=== PATIENT | female | born 1970 | race Caucasian/White ===

== ENCOUNTER 2017-11-22 18:35 | Emergency (ER) | payer OTHER ==
[~2017-11-22] VITALS: Ht 160 cm; Wt 54.4 kg
[2017-11-22] MEDS ORDERED: Prilosec Otc20 MG (18:41)
[2017-11-22] MEDS ORDERED: HYDSUL200 PO (18:41)
== END 2017-11-22 19:42 | disposition home or self-care (01) ==
LOC: ER 18:35
DX: S91.332A Puncture wound without foreign body, left foot, initial encounter (principal); Z88.8 Allergy status to other drugs, medicaments and biological substances; W26.0XXA Contact with knife, initial encounter
CPT/HCPCS: 73630; 99283

== ENCOUNTER 2018-03-25 14:51 | Emergency (ER) | payer OTHER ==
[~2018-03-25] VITALS: Ht 157.5 cm; Wt 56.7 kg
[~2018-03-25 14:51] MED LIST: HYDSUL200 PO; Prilosec Otc20 MG
[2018-03-25 15:37] LABS: BASOPHILS ABSOLUTE AUTO 0.06 K/mm3 (0.00-0.23); BASOPHILS PERCENT AUTO 1 % (0-2); EOSINOPHILS ABSOLUTE AUTO 0.37 K/mm3 (0.00-0.68); EOSINOPHILS PERCENT AUTO 6 % (0-6); Hematocrit 38.2 % (33.0-51.0); Hemoglobin 12.2 g/dL (11.5-16.0); IMMATURE GRAN ABSOLUTE AUTO 0.03 K/mm3 (0.00-0.10); IMMATURE GRAN PERCENT AUTO 1 % (0-1); LYMPHOCYTES ABSOLUTE AUTO 1.43 K/mm3 (0.84-5.20); LYMPHOCYTES PERCENT AUTO 24 % (21-46); MONOCYTES ABSOLUTE AUTO 0.63 K/mm3 (0.16-1.47); MONOCYTES PERCENT AUTO 11 % (4-13); Mean Corpuscular HGB 30.4 pg (26.0-34.0); Mean Corpuscular HGB Conc 31.9 g/dL (31.5-36.5); Mean Corpuscular Volume 95 fL (80-100); Mean Platelet Volume 9.7 fL (9.1-12.4); NEUTROPHILS PERCENT AUTO 58 % (41-73); Platelet Count 256 K/mm3 (150-400); RDW Coefficient Variation 12.3 % (11.7-14.2); RDW Standard Deviation 43.2 fL (35.1-46.3); Red Blood Cell Count 4.01 M/mm3 (3.80-5.20); White Blood Cell Count 6.02 K/mm3 (4.00-11.30)
[2018-03-25 15:55] LABS: Alanine Aminotransfer (ALT/SGP 30 U/L (12-78); Albumin, Blood 3.6 g/dL (3.4-5.0); Albumin/Globulin Ratio 0.9 (0.8-1.8); Alk Phos 75 U/L (50-136); Anion Gap 8 mmol/L (6-16); Aspartate Aminotrans (AST/SGOT 27 U/L (12-37); Bilirubin, Total 0.3 mg/dL (0.1-1.0); Blood Urea Nitrogen 20 mg/dL (8-24); Bun/Creatinine Ratio 43.8 (12.0-20.0); CO2, Blood 28 mmol/L (21-32); Calcium, Blood 8.6 mg/dL (8.5-10.1); Chloride, Blood 105 mmol/L (98-108); Creatinine, Blood 0.46 mg/dL (0.40-1.00); Globulin, Blood 3.8 g/dL (2.2-4.0); Glomerular Filtration Rate >60 (60-); Glucose, Blood 106 mg/dL (70-99); Potassium, Blood 3.9 mmol/L (3.5-5.5); Sodium, Blood 141 mmol/L (136-145); Total Protein, Blood 7.4 g/dL (6.4-8.2)
[2018-03-28] MEDS ORDERED: Voltaren100 GM TOP (21:16)
== END 2018-03-25 16:49 | disposition left against medical advice (07) ==
LOC: ER 14:51
PROVIDERS: Physician Assistant
DX: Z53.21 Procedure and treatment not carried out due to patient leaving prior to being seen by health care provider (principal)
CPT/HCPCS: 36415; 80053; 85025

== ENCOUNTER 2018-10-10 16:55 | Emergency (ER) | payer OTHER ==
[~2018-10-10] VITALS: Ht 160 cm; Wt 55.8 kg
[~2018-10-10 16:55] MED LIST changes: +Voltaren100 GM TOP
[2018-10-10] MEDS ORDERED: Percocet 5-3251 EACH PO (19:25)
== END 2018-10-10 20:18 | disposition home or self-care (01) ==
LOC: ER 16:55
DX: M25.552 Pain in left hip (principal); M54.42 Lumbago with sciatica, left side; Z88.5 Allergy status to narcotic agent; Z88.8 Allergy status to other drugs, medicaments and biological substances
CPT/HCPCS: 73502; 96372; 99283-25; J1170

== ENCOUNTER 2018-10-21 11:25 | Emergency (ER) | payer OTHER ==
[~2018-10-21] VITALS: Ht 160 cm; Wt 58.5 kg
[~2018-10-21 11:25] MED LIST changes: +Percocet 5-3251 EACH PO
== END 2018-10-21 15:27 | disposition left against medical advice (07) ==
LOC: ER 11:25
DX: Z53.21 Procedure and treatment not carried out due to patient leaving prior to being seen by health care provider (principal); M54.32 Sciatica, left side

== ENCOUNTER 2019-07-31 15:08 | Emergency (ER) | payer OTHER ==
[~2019-07-31] VITALS: Ht 160 cm; Wt 65.8 kg
[~2019-07-31 15:08] MED LIST changes: +BENZ100A PO; +PSEU120ER PO; +Travatan Z5 ML; +Zithromax250 MG PO; +[UNRECOGNIZED DRUG - OTHER] PO
== END 2019-07-31 16:35 | disposition home or self-care (01) ==
LOC: ER 15:08
DX: R21 Rash and other nonspecific skin eruption (principal); F41.9 Anxiety disorder, unspecified; M06.9 Rheumatoid arthritis, unspecified; Z88.2 Allergy status to sulfonamides
CPT/HCPCS: 93005; 93010; 96372; 99283-25; J3301

== ENCOUNTER 2020-04-13 10:11 | Emergency (ER) | payer OTHER ==
[~2020-04-13] VITALS: Ht 160 cm; Wt 59.0 kg
[2020-04-13 10:33] LABS: BASOPHILS ABSOLUTE AUTO 0.08 K/mm3 (0.00-0.23); BASOPHILS PERCENT AUTO 1 % (0-2); EOSINOPHILS ABSOLUTE AUTO 0.81 K/mm3 (0.00-0.68); EOSINOPHILS PERCENT AUTO 11 % (0-6); Hematocrit 38.6 % (33.0-51.0); Hemoglobin 12.1 g/dL (11.5-16.0); IMMATURE GRAN ABSOLUTE AUTO 0.05 K/mm3 (0.00-0.10); IMMATURE GRAN PERCENT AUTO 1 % (0-1); LYMPHOCYTES ABSOLUTE AUTO 1.33 K/mm3 (0.84-5.20); LYMPHOCYTES PERCENT AUTO 19 % (21-46); MONOCYTES ABSOLUTE AUTO 0.69 K/mm3 (0.16-1.47); MONOCYTES PERCENT AUTO 10 % (4-13); Mean Corpuscular HGB 30.3 pg (26.0-34.0); Mean Corpuscular HGB Conc 31.3 g/dL (31.5-36.5); Mean Corpuscular Volume 97 fL (80-100); NEUTROPHILS ABSOLUTE AUTO 4.19 K/mm3 (1.96-9.15); NEUTROPHILS PERCENT AUTO 59 % (41-73); Platelet Count 253 K/mm3 (150-400); RDW Coefficient Variation 14.2 % (11.7-14.2); RDW Standard Deviation 50.5 fL (35.1-46.3); Red Blood Cell Count 3.99 M/mm3 (3.80-5.20); White Blood Cell Count 7.15 K/mm3 (4.00-11.30)
[2020-04-13] MEDS ORDERED: ATOR20 PO (10:55)
[2020-04-13 10:58] LABS: Alanine Aminotransfer (ALT/SGP 28 U/L (12-78); Albumin, Blood 3.5 g/dL (3.4-5.0); Albumin/Globulin Ratio 1.1 (0.8-1.8); Alk Phos 53 U/L (50-136); Anion Gap 4 mmol/L (6-16); Aspartate Aminotrans (AST/SGOT 22 U/L (12-37); Bilirubin, Total 0.5 mg/dL (0.1-1.0); Blood Urea Nitrogen 15 mg/dL (8-24); Bun/Creatinine Ratio 30.4 (12.0-20.0); CO2, Blood 30 mmol/L (21-32); Calcium, Blood 8.6 mg/dL (8.5-10.1); Chloride, Blood 108 mmol/L (98-108); Creatinine, Blood 0.49 mg/dL (0.40-1.00); Globulin, Blood 3.3 g/dL (2.2-4.0); Glomerular Filtration Rate >60 (60-); Glucose, Blood 83 mg/dL (70-99); Potassium, Blood 4.2 mmol/L (3.5-5.5); Sodium, Blood 142 mmol/L (136-145); Total Protein, Blood 6.8 g/dL (6.4-8.2); Troponin I <0.015 ng/mL (0.000-0.040)
[2020-04-13] MEDS ORDERED: IBUP600 PO (11:26)
[2020-04-13] MEDS ORDERED: TRAM50 PO (11:26)
== END 2020-04-13 11:35 | disposition home or self-care (01) ==
LOC: ER 10:11
PROVIDERS: Emergency Medicine
DX: M54.10 Radiculopathy, site unspecified (principal); R07.9 Chest pain, unspecified; R06.02 Shortness of breath; F41.9 Anxiety disorder, unspecified; Z79.899 Other long term (current) drug therapy; Z88.2 Allergy status to sulfonamides; Z91.018 Allergy to other foods; Z91.040 Latex allergy status; Z88.5 Allergy status to narcotic agent; Z91.09 Other allergy status, other than to drugs and biological substances; Z86.718 Personal history of other venous thrombosis and embolism; Z86.73 Personal history of transient ischemic attack (TIA), and cerebral infarction without residual deficits
CPT/HCPCS: 71045; 80053; 84484; 85025; 93005; 93010; 96374; 99285-25; J2060

== ENCOUNTER 2020-07-17 12:02 | Emergency (ER) | payer OTHER ==
[~2020-07-17] VITALS: Ht 160 cm; Wt 54.4 kg
[~2020-07-17 12:02] MED LIST changes: +ATOR20 PO; +IBUP600 PO; +TRAM50 PO
[2020-07-17] MEDS ORDERED: Prednisone20 MG PO (12:31)
== END 2020-07-17 12:30 | disposition home or self-care (01) ==
LOC: ER 12:02
DX: L23.7 Allergic contact dermatitis due to plants, except food (principal); Z88.2 Allergy status to sulfonamides; Z88.8 Allergy status to other drugs, medicaments and biological substances; Z91.040 Latex allergy status; Z88.5 Allergy status to narcotic agent; Z79.899 Other long term (current) drug therapy; Z86.73 Personal history of transient ischemic attack (TIA), and cerebral infarction without residual deficits
CPT/HCPCS: 99283

== ENCOUNTER 2020-12-18 13:11 | Emergency (ER) | payer OTHER ==
[~2020-12-18] VITALS: Ht 160 cm; Wt 57.6 kg
[~2020-12-18 13:11] MED LIST changes: +Prednisone20 MG PO
[2020-12-18 14:03] LABS: BASOPHILS ABSOLUTE AUTO 0.06 K/mm3 (0.00-0.23); BASOPHILS PERCENT AUTO 1 % (0-2); EOSINOPHILS ABSOLUTE AUTO 0.15 K/mm3 (0.00-0.68); EOSINOPHILS PERCENT AUTO 3 % (0-6); Hematocrit 38.2 % (33.0-51.0); Hemoglobin 12.2 g/dL (11.5-16.0); IMMATURE GRAN ABSOLUTE AUTO 0.01 K/mm3 (0.00-0.10); IMMATURE GRAN PERCENT AUTO 0 % (0-1); LYMPHOCYTES ABSOLUTE AUTO 0.55 K/mm3 (0.84-5.20); LYMPHOCYTES PERCENT AUTO 10 % (21-46); MONOCYTES ABSOLUTE AUTO 0.72 K/mm3 (0.16-1.47); MONOCYTES PERCENT AUTO 14 % (4-13); Mean Corpuscular HGB 29.9 pg (26.0-34.0); Mean Corpuscular HGB Conc 31.9 g/dL (31.5-36.5); Mean Corpuscular Volume 94 fL (80-100); Mean Platelet Volume 9.7 fL (9.1-12.4); NEUTROPHILS ABSOLUTE AUTO 3.85 K/mm3 (1.96-9.15); NEUTROPHILS PERCENT AUTO 72 % (41-73); Platelet Count 205 K/mm3 (150-400); RDW Coefficient Variation 12.7 % (11.7-14.2); RDW Standard Deviation 43.8 fL (35.1-46.3); Red Blood Cell Count 4.08 M/mm3 (3.80-5.20); White Blood Cell Count 5.34 K/mm3 (4.00-11.30)
[2020-12-18 14:31] LABS: Alanine Aminotransfer (ALT/SGP 21 U/L (12-78); Albumin, Blood 3.7 g/dL (3.4-5.0); Alk Phos 54 U/L (50-136); Anion Gap 5 mmol/L (6-16); Aspartate Aminotrans (AST/SGOT 23 U/L (12-37); Bilirubin, Total 0.5 mg/dL (0.1-1.0); Blood Urea Nitrogen 14 mg/dL (8-24); Bun/Creatinine Ratio 27.1 (12.0-20.0); CO2, Blood 26 mmol/L (21-32); Calcium, Blood 8.7 mg/dL (8.5-10.1); Chloride, Blood 105 mmol/L (98-108); Creatinine, Blood 0.52 mg/dL (0.40-1.00); Globulin, Blood 3.8 g/dL (2.2-4.0); Glomerular Filtration Rate >60 (60-); Glucose, Blood 105 mg/dL (70-99); Potassium, Blood 4.2 mmol/L (3.5-5.5); Sodium, Blood 136 mmol/L (136-145); Total Protein, Blood 7.5 g/dL (6.4-8.2)
== END 2020-12-18 15:54 | disposition left against medical advice (07) ==
LOC: ER 13:11
PROVIDERS: Physician Assistant
DX: R10.9 Unspecified abdominal pain (principal); Z53.21 Procedure and treatment not carried out due to patient leaving prior to being seen by health care provider
CPT/HCPCS: 36415; 80053; 85025; 99283

== ENCOUNTER 2021-04-01 15:42 | Emergency (ER) | payer OTHER ==
[~2021-04-01] VITALS: Ht 160 cm; Wt 55.3 kg
== END 2021-04-01 17:35 | disposition left against medical advice (07) ==
LOC: ER 15:42
DX: J02.9 Acute pharyngitis, unspecified (principal); R11.2 Nausea with vomiting, unspecified; Z53.21 Procedure and treatment not carried out due to patient leaving prior to being seen by health care provider
CPT/HCPCS: 99282

== ENCOUNTER 2021-04-04 11:22 | Emergency (ER) | payer OTHER ==
[~2021-04-04] VITALS: Ht 160 cm; Wt 55.3 kg
[2021-04-04 11:46] LABS: BASOPHILS ABSOLUTE AUTO 0.05 K/mm3 (0.00-0.23); BASOPHILS PERCENT AUTO 1 % (0-2); EOSINOPHILS ABSOLUTE AUTO 0.27 K/mm3 (0.00-0.68); EOSINOPHILS PERCENT AUTO 4 % (0-6); Hematocrit 36.2 % (33.0-51.0); Hemoglobin 11.9 g/dL (11.5-16.0); IMMATURE GRAN ABSOLUTE AUTO 0.03 K/mm3 (0.00-0.10); IMMATURE GRAN PERCENT AUTO 0 % (0-1); LYMPHOCYTES ABSOLUTE AUTO 1.15 K/mm3 (0.84-5.20); LYMPHOCYTES PERCENT AUTO 17 % (21-46); MONOCYTES ABSOLUTE AUTO 0.79 K/mm3 (0.16-1.47); MONOCYTES PERCENT AUTO 12 % (4-13); Mean Corpuscular HGB 29.9 pg (26.0-34.0); Mean Corpuscular HGB Conc 32.9 g/dL (31.5-36.5); Mean Corpuscular Volume 91 fL (80-100); Mean Platelet Volume 9.5 fL (9.1-12.4); NEUTROPHILS PERCENT AUTO 66 % (41-73); Platelet Count 238 K/mm3 (150-400); RDW Coefficient Variation 12.6 % (11.7-14.2); RDW Standard Deviation 42.2 fL (35.1-46.3); Red Blood Cell Count 3.98 M/mm3 (3.80-5.20); White Blood Cell Count 6.79 K/mm3 (4.00-11.30)
[2021-04-04 12:04] LABS: Alanine Aminotransfer (ALT/SGP 23 U/L (12-78); Albumin, Blood 2.7 g/dL (3.4-5.0); Albumin/Globulin Ratio 0.6 (0.8-1.8); Alk Phos 66 U/L (50-136); Anion Gap 3 mmol/L (6-16); Aspartate Aminotrans (AST/SGOT 14 U/L (12-37); Bilirubin, Total 0.4 mg/dL (0.1-1.0); Blood Urea Nitrogen 11 mg/dL (8-24); CO2, Blood 32 mmol/L (21-32); Calcium, Blood 8.9 mg/dL (8.5-10.1); Chloride, Blood 103 mmol/L (98-108); Globulin, Blood 4.6 g/dL (2.2-4.0); Glomerular Filtration Rate >60 (60-); Glucose, Blood 97 mg/dL (70-99); Potassium, Blood 3.6 mmol/L (3.5-5.5); Sodium, Blood 138 mmol/L (136-145); Total Protein, Blood 7.3 g/dL (6.4-8.2)
[2021-04-04 12:05] LABS: Source, Urine Catheter
[2021-04-04 12:13] LABS: Appearance, Urine Clear (Clear); Bilirubin, Urine Neg (Neg); Blood, Urine Neg (Neg); Color, Urine Yellow (P-Yellow); Glucose Qualitative, Urine Neg (Neg); Ketones, Urine Neg (Neg); Leukocyte Esterase, Urine Neg (Neg); Nitrite, Urine Neg (Neg); Protein, Urine Neg (Neg); Urobilinogen, Urine NORM (Normal)
[2021-04-04 12:34] LABS: SARS-Cov-2 (COVID-19) PCR, MMC NEGATIVE (NEGATIVE)
== END 2021-04-04 15:50 | disposition home or self-care (01) ==
LOC: ER 11:22
PROVIDERS: Emergency Medicine
DX: R10.9 Unspecified abdominal pain (principal); Z20.822 Contact with and (suspected) exposure to COVID-19; M06.9 Rheumatoid arthritis, unspecified; F41.9 Anxiety disorder, unspecified; D64.9 Anemia, unspecified
CPT/HCPCS: 74177; 80053; 81003; 83690; 85025; 96374; 96375; 99285-25; J1170; J2405; J7030; P9612; Q9967; U0004

== ENCOUNTER 2022-02-01 14:36 | Emergency (ER) | payer OTHER ==
[~2022-02-01] VITALS: Ht 160 cm; Wt 56.7 kg
[2022-02-01] MEDS ORDERED: IBUP600 PO (15:51)
[2022-02-01] MEDS ORDERED: CYCL10 PO (15:51)
[2022-02-01] MEDS ORDERED: Percocet 5-3251 EACH PO (15:51)
== END 2022-02-01 16:00 | disposition home or self-care (01) ==
LOC: ER 14:36
DX: S09.90XA Unspecified injury of head, initial encounter (principal); S43.401A Unspecified sprain of right shoulder joint, initial encounter; R07.81 Pleurodynia; M25.532 Pain in left wrist; Z86.718 Personal history of other venous thrombosis and embolism; Z86.73 Personal history of transient ischemic attack (TIA), and cerebral infarction without residual deficits; Z88.5 Allergy status to narcotic agent; Z88.2 Allergy status to sulfonamides; Z88.8 Allergy status to other drugs, medicaments and biological substances; Z91.09 Other allergy status, other than to drugs and biological substances; Z79.899 Other long term (current) drug therapy; V86.95XA Unspecified occupant of 3- or 4- wheeled all-terrain vehicle (ATV) injured in nontraffic accident, initial encounter
CPT/HCPCS: 71101; 73000; 73110

== ENCOUNTER 2022-03-22 00:04 | Emergency (ER) | payer OTHER ==
[~2022-03-22] VITALS: Ht 160 cm; Wt 57.6 kg
[~2022-03-22 00:04] MED LIST changes: +CYCL10 PO
== END 2022-03-22 00:18 | disposition home or self-care (01) ==
LOC: ER 00:04
DX: S60.221A Contusion of right hand, initial encounter (principal); W22.8XXA Striking against or struck by other objects, initial encounter; Z88.2 Allergy status to sulfonamides; Z91.018 Allergy to other foods; Z91.040 Latex allergy status; Z88.5 Allergy status to narcotic agent; Z88.8 Allergy status to other drugs, medicaments and biological substances; Z91.09 Other allergy status, other than to drugs and biological substances; Z86.73 Personal history of transient ischemic attack (TIA), and cerebral infarction without residual deficits
CPT/HCPCS: 73130

== ENCOUNTER 2023-03-12 01:40 | Emergency (ER) | payer OTHER ==
[~2023-03-12] VITALS: Ht 160 cm; Wt 57.1 kg
[2023-03-12 02:04] LABS: BASOPHILS ABSOLUTE AUTO 0.07 K/mm3 (0.00-0.23); BASOPHILS PERCENT AUTO 2 % (0-2); EOSINOPHILS ABSOLUTE AUTO 0.47 K/mm3 (0.00-0.68); EOSINOPHILS PERCENT AUTO 11 % (0-6); Hematocrit 37.2 % (33.0-51.0); Hemoglobin 12.1 g/dL (11.5-16.0); IMMATURE GRAN ABSOLUTE AUTO 0.01 K/mm3 (0.00-0.10); IMMATURE GRAN PERCENT AUTO 0 % (0-1); LYMPHOCYTES ABSOLUTE AUTO 1.39 K/mm3 (0.84-5.20); LYMPHOCYTES PERCENT AUTO 31 % (21-46); MONOCYTES ABSOLUTE AUTO 0.41 K/mm3 (0.16-1.47); MONOCYTES PERCENT AUTO 9 % (4-13); Mean Corpuscular HGB 30.5 pg (26.0-34.0); Mean Corpuscular HGB Conc 32.5 g/dL (31.5-36.5); Mean Corpuscular Volume 94 fL (80-100); Mean Platelet Volume 9.3 fL (9.1-12.4); NEUTROPHILS ABSOLUTE AUTO 2.09 K/mm3 (1.96-9.15); NEUTROPHILS PERCENT AUTO 47 % (41-73); Platelet Count 252 K/mm3 (150-400); RDW Coefficient Variation 12.5 % (11.7-14.2); RDW Standard Deviation 43.2 fL (35.1-46.3); Red Blood Cell Count 3.97 M/mm3 (3.80-5.20); White Blood Cell Count 4.44 K/mm3 (4.00-11.30)
[2023-03-12 02:26] LABS: Albumin, Blood 3.7 g/dL (3.4-5.0); Bilirubin, Total 0.3 mg/dL (0.1-1.0); Bun/Creatinine Ratio 34.8 (12.0-20.0); Calcium, Blood 8.7 mg/dL (8.5-10.1); Creatinine, Blood 0.58 mg/dL (0.40-1.00); Globulin, Blood 3.6 g/dL (2.2-4.0); Potassium, Blood 3.6 mmol/L (3.5-5.5); Total Protein, Blood 7.3 g/dL (6.4-8.2)
[2023-03-12] MEDS ORDERED: ATOR40TA (02:36)
[2023-03-12] MEDS ORDERED: ACET500 PO (04:53)
[2023-03-12 05:00] VITALS: BP 111/80
== END 2023-03-12 05:18 | disposition home or self-care (01) ==
LOC: ER 01:40
PROVIDERS: Emergency Medicine
DX: R07.89 Other chest pain (principal); M06.9 Rheumatoid arthritis, unspecified; D64.9 Anemia, unspecified
CPT/HCPCS: 71046; 80053; 84484; 85025; 85379; 93005; 93010; 93970; 99285-25

== ENCOUNTER 2023-07-07 03:51 | Emergency (ER) | payer OTHER ==
[~2023-07-07] VITALS: Ht 160 cm; Wt 57.6 kg
[~2023-07-07 03:51] MED LIST changes: +ACET500 PO; +ATOR10 PO; +Cyclobenzaprine5 MG PO
[2023-07-07 04:24] VITALS: BP 149/95
== END 2023-07-07 06:43 | disposition home or self-care (01) ==
LOC: ER 03:51
DX: S92.502A Displaced unspecified fracture of left lesser toe(s), initial encounter for closed fracture (principal); M06.9 Rheumatoid arthritis, unspecified; H40.9 Unspecified glaucoma; M79.7 Fibromyalgia; Z86.73 Personal history of transient ischemic attack (TIA), and cerebral infarction without residual deficits; Z86.718 Personal history of other venous thrombosis and embolism; Z79.899 Other long term (current) drug therapy; Z88.2 Allergy status to sulfonamides; Z88.5 Allergy status to narcotic agent; Z88.8 Allergy status to other drugs, medicaments and biological substances; Z91.018 Allergy to other foods; Z91.040 Latex allergy status; Z91.048 Other nonmedicinal substance allergy status; W22.8XXA Striking against or struck by other objects, initial encounter
CPT/HCPCS: 73610; 73630; 99283-25

== ENCOUNTER 2023-11-10 10:05 | Emergency (ER) | payer OTHER ==
[~2023-11-10] VITALS: Ht 160 cm; Wt 59.9 kg
[~2023-11-10 10:05] MED LIST changes: +LEVE500 PO
[2023-11-10] MEDS ORDERED: Acetaminophen 500 MG Tab PO ONE (10:25)
[2023-11-10] MEDS ORDERED: Methocarbamol 500 MG Tab PO ONE (10:25)
[2023-11-10] MEDS ORDERED: Gabapentin 300 MG Cap PO ONE (10:25)
[2023-11-10] MEDS ORDERED: Ibuprofen 600 MG Tab PO ONE (10:25)
[2023-11-10] MEDS ORDERED: Robaxin750 MG PO (11:55)
[2023-11-10 12:00] VITALS: BP 131/80
== END 2023-11-10 12:16 | disposition home or self-care (01) ==
LOC: ER 10:05
DX: M25.551 Pain in right hip (principal); Z88.2 Allergy status to sulfonamides; Z88.5 Allergy status to narcotic agent; Z88.8 Allergy status to other drugs, medicaments and biological substances; Z91.040 Latex allergy status; Z91.018 Allergy to other foods; Z91.048 Other nonmedicinal substance allergy status; Z79.899 Other long term (current) drug therapy
CPT/HCPCS: 73502; 99283-25; A9270

== ENCOUNTER 2023-11-14 18:26 | Emergency (ER) | payer OTHER ==
[~2023-11-14] VITALS: Ht 160 cm; Wt 59.9 kg
[~2023-11-14 18:26] MED LIST changes: +Robaxin750 MG PO
[2023-11-14 21:56] VITALS: BP 107/76
== END 2023-11-14 22:32 | disposition home or self-care (01) ==
LOC: ER 18:26
DX: M79.605 Pain in left leg (principal); M79.604 Pain in right leg; G40.409 Other generalized epilepsy and epileptic syndromes, not intractable, without status epilepticus; Z88.2 Allergy status to sulfonamides; Z88.5 Allergy status to narcotic agent; Z91.040 Latex allergy status; Z88.8 Allergy status to other drugs, medicaments and biological substances; Z91.018 Allergy to other foods; Z91.048 Other nonmedicinal substance allergy status; Z79.899 Other long term (current) drug therapy
CPT/HCPCS: 93970; 99283-25

== ENCOUNTER 2023-11-29 04:45 | Emergency (ER) | payer OTHER ==
[~2023-11-29] VITALS: Ht 160 cm; Wt 59.9 kg
[2023-11-29 05:09] LABS: BASOPHILS ABSOLUTE AUTO 0.04 K/mm3 (0.00-0.23); BASOPHILS PERCENT AUTO 1 % (0-2); EOSINOPHILS ABSOLUTE AUTO 0.15 K/mm3 (0.00-0.68); EOSINOPHILS PERCENT AUTO 4 % (0-6); Hematocrit 27.7 % (33.0-51.0); Hemoglobin 8.7 g/dL (11.5-16.0); IMMATURE GRAN ABSOLUTE AUTO 0.01 K/mm3 (0.00-0.10); IMMATURE GRAN PERCENT AUTO 0 % (0-1); LYMPHOCYTES ABSOLUTE AUTO 0.35 K/mm3 (0.84-5.20); LYMPHOCYTES PERCENT AUTO 9 % (21-46); MONOCYTES ABSOLUTE AUTO 0.43 K/mm3 (0.16-1.47); MONOCYTES PERCENT AUTO 11 % (4-13); Mean Corpuscular HGB Conc 31.4 g/dL (31.5-36.5); Mean Corpuscular Volume 86 fL (80-100); Mean Platelet Volume 9.8 fL (9.1-12.4); NEUTROPHILS ABSOLUTE AUTO 2.86 K/mm3 (1.96-9.15); NEUTROPHILS PERCENT AUTO 75 % (41-73); Platelet Count 289 K/mm3 (150-400); RDW Coefficient Variation 14.1 % (11.7-14.2); RDW Standard Deviation 43.8 fL (35.1-46.3); Red Blood Cell Count 3.22 M/mm3 (3.80-5.20); White Blood Cell Count 3.84 K/mm3 (4.00-11.30)
[2023-11-29 05:26] LABS: Albumin, Blood 3.6 g/dL (3.4-5.0); Albumin/Globulin Ratio 1.1 (0.8-1.8); Bilirubin, Total 0.2 mg/dL (0.1-1.0); Bun/Creatinine Ratio 33.8 (12.0-20.0); Calcium, Blood 8.3 mg/dL (8.5-10.1); Creatinine, Blood 0.53 mg/dL (0.40-1.00); Globulin, Blood 3.4 g/dL (2.2-4.0); Potassium, Blood 3.5 mmol/L (3.5-5.5)
[2023-11-29 06:30] LABS: Source, Urine Clean Catch
[2023-11-29 06:42] LABS: Appearance, Urine Clear (Clear); Bilirubin, Urine Neg (Neg); Blood, Urine Neg (Neg); Color, Urine Yellow (P-Yellow); Glucose Qualitative, Urine Neg (Neg); Ketones, Urine Neg (Neg); Leukocyte Esterase, Urine Neg (Neg); Nitrite, Urine Neg (Neg); Protein, Urine Neg (Neg); Urobilinogen, Urine NORM (Normal)
[2023-11-29] MEDS ORDERED: NS 1,000 ML IV SCH (06:50)
[2023-11-29] MEDS ORDERED: levETIRAcetam 500 MG in NS 100 ML IV ONE (06:55)
[2023-11-29] MEDS ORDERED: Ondansetron HCl 2 MG / ML 2ML Vial IV ONE (06:55)
[2023-11-29 07:10] LABS: IMMATURE RETIC FRACTION 17.5 % (2.3-16.0); RETIC HGB EQUIVALENT 25.5 pg (28.20-36.60); RETICULOCYTE ABSOLUTE 0.0364 M/mm3 (0.0200-0.1100); RETICULOCYTE COUNT PERCENT 1.12 % (0.50-2.50)
[2023-11-29] MEDS ORDERED: ONDA4ODT MM (08:30)
[2023-11-29 08:47] VITALS: BP 148/88
== END 2023-11-29 08:51 | disposition home or self-care (01) ==
LOC: ER 04:45
PROVIDERS: Emergency Medicine; Student in an Organized Health Care Education/Training Program
DX: R10.30 Lower abdominal pain, unspecified (principal); R11.2 Nausea with vomiting, unspecified; G40.909 Epilepsy, unspecified, not intractable, without status epilepticus; D64.9 Anemia, unspecified; M06.9 Rheumatoid arthritis, unspecified; Z88.8 Allergy status to other drugs, medicaments and biological substances; Z88.5 Allergy status to narcotic agent; Z88.2 Allergy status to sulfonamides; Z88.6 Allergy status to analgesic agent; Z91.018 Allergy to other foods; Z79.899 Other long term (current) drug therapy
CPT/HCPCS: 74177; 80053; 81003; 85025; 85045; 96365-59; 96375; 99284-25; J1953; J2405; J7030; Q9967

== ENCOUNTER → 2023-12-17 | Outpatient (CLI) | payer OTHER ==
[~2023-12-17] MED LIST changes: +ONDA4ODT MM
[2023-12-18 13:02] LABS: BASOPHILS ABSOLUTE AUTO 0.11 K/mm3 (0.00-0.23); BASOPHILS PERCENT AUTO 2 % (0-2); EOSINOPHILS ABSOLUTE AUTO 0.28 K/mm3 (0.00-0.68); EOSINOPHILS PERCENT AUTO 5 % (0-6); Hemoglobin 9.2 g/dL (11.5-16.0); IMMATURE GRAN ABSOLUTE AUTO 0.02 K/mm3 (0.00-0.10); IMMATURE GRAN PERCENT AUTO 0 % (0-1); LYMPHOCYTES ABSOLUTE AUTO 1.04 K/mm3 (0.84-5.20); LYMPHOCYTES PERCENT AUTO 18 % (21-46); MONOCYTES ABSOLUTE AUTO 0.47 K/mm3 (0.16-1.47); MONOCYTES PERCENT AUTO 8 % (4-13); Mean Corpuscular HGB 26.1 pg (26.0-34.0); Mean Corpuscular HGB Conc 30.7 g/dL (31.5-36.5); Mean Corpuscular Volume 85 fL (80-100); Mean Platelet Volume 10.2 fL (9.1-12.4); NEUTROPHILS ABSOLUTE AUTO 3.76 K/mm3 (1.96-9.15); NEUTROPHILS PERCENT AUTO 66 % (41-73); Platelet Count 395 K/mm3 (150-400); RDW Standard Deviation 46.4 fL (35.1-46.3); Red Blood Cell Count 3.52 M/mm3 (3.80-5.20); White Blood Cell Count 5.68 K/mm3 (4.00-11.30)
[2023-12-18 13:14] LABS: Percent Saturation 4.3 % (15.0-50.0)
[2023-12-18 13:33] LABS: Albumin, Blood 3.7 g/dL (3.4-5.0); Bilirubin, Total 0.3 mg/dL (0.1-1.0); Bun/Creatinine Ratio 43.5 (12.0-20.0); Calcium, Blood 8.7 mg/dL (8.5-10.1); Creatinine, Blood 0.46 mg/dL (0.40-1.00); Globulin, Blood 3.7 g/dL (2.2-4.0); Potassium, Blood 4.1 mmol/L (3.5-5.5); Total Protein, Blood 7.4 g/dL (6.4-8.2)
== END | disposition home or self-care (01) ==
LOC: LAB SHORT 12:18
PROVIDERS: Nurse Practitioner Family
DX: D50.8 Other iron deficiency anemias (principal)
CPT/HCPCS: 80053; 82607; 82728; 82746; 83540; 83550; 85025

== ENCOUNTER 2023-12-31 11:24 | Day surgery (SDC) | payer OTHER ==
[~2023-12-31] VITALS: Ht 160 cm; Wt 56.2 kg
[2023-12-31 11:51] VITALS: BP 119/85
[2023-12-31 11:53] VITALS: BP 119/85
[2023-12-31] MEDS ORDERED: LIDO700A20 TOP (12:06)
[2023-12-31] MEDS ORDERED: TRAVOPROST2.5 ML (12:06)
[2023-12-31] MEDS ORDERED: VITAMIN D PO (12:06)
[2023-12-31] MEDS ORDERED: VITAMIN B12 PO (12:07)
[2023-12-31] MEDS ORDERED: IRON PO (12:07)
[2023-12-31] MEDS ORDERED: Ketorolac Tromethamine 30mg Vial ONE (16:33)
[2023-12-31] MEDS ORDERED: NS 1,000 ML IV ONE ×2 (16:46→17:12)
[2023-12-31] MEDS ORDERED: Heparin Sodium 1000 Units/ML 10ML MDV ONE (16:46)
[2023-12-31] MEDS ORDERED: NS 100 ML IV ONE (16:59)
[2023-12-31] MEDS ORDERED: Midazolam HCl 1MG / ML 2ML Vial ONE ×2 (17:12→17:23)
[2023-12-31] MEDS ORDERED: FentaNYL Citrate 50 MCG/ML 2 ML Injection ONE ×2 (17:12→17:24)
[2023-12-31] MEDS ORDERED: LevETIRAcetam 500 MG Tab PO ONE (17:45)
[2023-12-31 18:24] VITALS: BP 124/84
--- NOTE | 2023-12-31 18:27 | NUR ---
PT BACK TO RECOVERY FROM LAB. GROIN SITE SOFT AND NON-TENDER PER PT. NO BLEEDING NOTED. PT A&O. REPEAT V/S.
[2023-12-31 18:52] VITALS: BP 121/81
[2023-12-31 18:57] VITALS: BP 129/78
--- NOTE | 2023-12-31 19:02 | NUR ---
pt ambulated around department. pt reports feeling fine. groin site soft and non-tender per pt. no bleeding noted. pt changed.
--- NOTE | 2023-12-31 19:27 | NUR ---
pt given dc instructions and verbalized understanding. iv out. pt taken to [facility] via [facility] by evonne carcamo. groin site soft and non-tender per pt. no bleeding noted.
[2024-01-03] MEDS ORDERED: Methocarbamol750 MG PO (22:23)
[2024-01-03] MEDS ORDERED: Robaxin750 MG PO (22:25)
[2024-01-05] MEDS ORDERED: IBUP600 PO (00:13)
[2024-01-05] MEDS ORDERED: CYAN500 PO (13:49)
[2024-01-05] MEDS ORDERED: Feosol45 MG PO (13:50)
[2024-01-06] MEDS ORDERED: DOCU100 PO (12:16)
[2024-01-06] MEDS ORDERED: AMOX875 PO (12:17)
[2024-01-06] MEDS ORDERED: VISBIOME 112.51 EACH PO (12:17)
[2024-01-06] MEDS ORDERED: ASCO500 PO (12:17)
== END 2023-12-31 19:30 | disposition home or self-care (01) ==
LOC: MHTC 11:24
DX: N94.89 Other specified conditions associated with female genital organs and menstrual cycle (principal); E78.5 Hyperlipidemia, unspecified; Z88.2 Allergy status to sulfonamides; Z88.8 Allergy status to other drugs, medicaments and biological substances; Z79.899 Other long term (current) drug therapy
CPT/HCPCS: 36011; 37241; 75833; 76937; 99152; 99153; A9270; C1769; C1887; C1894; J1644; J1885; J2250; J3010; J7030; Q9967

== ENCOUNTER 2024-01-14 01:12 | Emergency (ER) | payer OTHER ==
[~2024-01-14] VITALS: Ht 160 cm; Wt 57.6 kg
[~2024-01-14 01:12] MED LIST changes: +AMOX875 PO; +ASCO500 PO; +CYAN500 PO; +DOCU100 PO; +Feosol45 MG PO; +IRON PO; +LIDO700A20 TOP; +Methocarbamol750 MG PO; +TRAVOPROST2.5 ML; +VISBIOME 112.51 EACH PO; +VITAMIN B12 PO; +VITAMIN D PO
[2024-01-14 01:34] LABS: BASOPHILS ABSOLUTE AUTO 0.07 K/mm3 (0.00-0.23); BASOPHILS PERCENT AUTO 1 % (0-2); EOSINOPHILS ABSOLUTE AUTO 0.54 K/mm3 (0.00-0.68); EOSINOPHILS PERCENT AUTO 6 % (0-6); Hematocrit 31.2 % (33.0-51.0); Hemoglobin 9.8 g/dL (11.5-16.0); IMMATURE GRAN ABSOLUTE AUTO 0.03 K/mm3 (0.00-0.10); IMMATURE GRAN PERCENT AUTO 0 % (0-1); LYMPHOCYTES ABSOLUTE AUTO 0.36 K/mm3 (0.84-5.20); LYMPHOCYTES PERCENT AUTO 4 % (21-46); MONOCYTES ABSOLUTE AUTO 0.47 K/mm3 (0.16-1.47); MONOCYTES PERCENT AUTO 6 % (4-13); Mean Corpuscular HGB 26.4 pg (26.0-34.0); Mean Corpuscular HGB Conc 31.4 g/dL (31.5-36.5); Mean Corpuscular Volume 84 fL (80-100); Mean Platelet Volume 9.1 fL (9.1-12.4); NEUTROPHILS ABSOLUTE AUTO 6.94 K/mm3 (1.96-9.15); NEUTROPHILS PERCENT AUTO 83 % (41-73); Platelet Count 292 K/mm3 (150-400); RDW Coefficient Variation 17.8 % (11.7-14.2); RDW Standard Deviation 54.5 fL (35.1-46.3); Red Blood Cell Count 3.71 M/mm3 (3.80-5.20); White Blood Cell Count 8.41 K/mm3 (4.00-11.30)
[2024-01-14 01:58] LABS: Albumin, Blood 3.5 g/dL (3.4-5.0); Albumin/Globulin Ratio 0.9 (0.8-1.8); Bilirubin, Total 0.6 mg/dL (0.1-1.0); Bun/Creatinine Ratio 47.1 (12.0-20.0); Calcium, Blood 8.7 mg/dL (8.5-10.1); Creatinine, Blood 0.45 mg/dL (0.40-1.00); Globulin, Blood 4.1 g/dL (2.2-4.0); Potassium, Blood 3.5 mmol/L (3.5-5.5); Total Protein, Blood 7.6 g/dL (6.4-8.2)
[2024-01-14] MEDS ORDERED: Lidocaine 4% 1 Patch TOP ONE (03:35)
[2024-01-14] MEDS ORDERED: RX Prepack 6 Tabs Oxycodone 5mg UD ONE (03:35)
[2024-01-14] MEDS ORDERED: Ketorolac Tromethamine 30mg Vial IV ONE (03:40)
[2024-01-14] MEDS ORDERED: Metoclopramide HCl 5MG / ML 2ML Vial IV ONE (03:40)
[2024-01-14] MEDS ORDERED: LIDO700A20 TOP (03:41)
[2024-01-14] MEDS ORDERED: Ibuprofen 600 MG Tab PO ONE (03:50)
[2024-01-14] MEDS ORDERED: RX Prepack 2 Tabs Ondansetron ODT 4MG UD ONE (03:50)
[2024-01-14 04:00] VITALS: BP 118/82
== END 2024-01-14 04:13 | disposition home or self-care (01) ==
LOC: ER 01:12
PROVIDERS: Student in an Organized Health Care Education/Training Program
DX: R07.89 Other chest pain (principal); Z79.899 Other long term (current) drug therapy; Z88.2 Allergy status to sulfonamides; Z91.018 Allergy to other foods; Z91.040 Latex allergy status; Z88.8 Allergy status to other drugs, medicaments and biological substances; Z88.5 Allergy status to narcotic agent; Z91.048 Other nonmedicinal substance allergy status
CPT/HCPCS: 71045; 80053; 83690; 84484; 85025; 93005; 93010; 99285-25; A9270; J1885; J2765

== ENCOUNTER → 2024-03-25 | Outpatient (CLI) | payer SELFPAY ==
[2024-03-25 15:27] LABS: Hematocrit 33.2 % (33.0-51.0); Hemoglobin 10.8 g/dL (11.5-16.0); Mean Corpuscular HGB 27.8 pg (26.0-34.0); Mean Corpuscular HGB Conc 32.5 g/dL (31.5-36.5); Mean Corpuscular Volume 85 fL (80-100); Mean Platelet Volume 9.5 fL (9.1-12.4); Platelet Count 173 K/mm3 (150-400); RDW Coefficient Variation 16.9 % (11.7-14.2); RDW Standard Deviation 52.6 fL (35.1-46.3); Red Blood Cell Count 3.89 M/mm3 (3.80-5.20); White Blood Cell Count 5.87 K/mm3 (4.00-11.30)
[2024-03-25 15:30] LABS: Bun/Creatinine Ratio 24.7 (12.0-20.0); Calcium, Blood 8.7 mg/dL (8.5-10.1); Creatinine, Blood 0.73 mg/dL (0.40-1.00); Potassium, Blood 3.3 mmol/L (3.5-5.5)
[2024-03-25 16:05] LABS: BAND PERCENT MAN 25 % (0-8); BASOPHILS ABSOLUTE MAN 0.05 K/mm3 (0.00-0.23); BASOPHILS PERCENT MAN 1 % (0-2); EOSINOPHILS PERCENT MAN 0 % (0-6); LYMPHOCYTES ABSOLUTE MAN 0.64 K/mm3 (0.84-5.20); LYMPHOCYTES PERCENT MAN 11 % (21-46); METAMYELOCYTE ABSOLUTE MAN 0.11 K/mm3 (0.00-0.00); METAMYELOCYTE PERCENT MAN 2 % (0-0); MONOCYTES ABSOLUTE MAN 0.52 K/mm3 (0.16-1.47); MONOCYTES PERCENT MAN 9 % (4-13); NEUTROPHILS ABSOLUTE MAN 4.51 K/mm3 (1.96-9.15); SEG NEUTROPHILS PERCENT MAN 52 % (41-73); TOTAL CELLS COUNTED 100
== END | disposition home or self-care (01) ==
LOC: LAB SHORT 15:21 → LAB 15:21
PROVIDERS: Physician Assistant
DX: R11.2 Nausea with vomiting, unspecified (principal); R19.7 Diarrhea, unspecified
CPT/HCPCS: 80048; 85025

== ENCOUNTER 2025-02-20 05:41 | Emergency (ER) | payer OTHER ==
[~2025-02-20] VITALS: Ht 160 cm; Wt 57.6 kg
[2025-02-20] MEDS ORDERED: NS 1,000 ML IV SCH (06:20)
[2025-02-20 06:39] LABS: BASOPHILS ABSOLUTE AUTO 0.09 K/mm3 (0.00-0.23); BASOPHILS PERCENT AUTO 2 % (0-2); EOSINOPHILS ABSOLUTE AUTO 0.60 K/mm3 (0.00-0.68); EOSINOPHILS PERCENT AUTO 11 % (0-6); Hematocrit 35.2 % (33.0-51.0); Hemoglobin 11.5 g/dL (11.5-16.0); IMMATURE GRAN ABSOLUTE AUTO 0.01 K/mm3 (0.00-0.10); IMMATURE GRAN PERCENT AUTO 0 % (0-1); LYMPHOCYTES ABSOLUTE AUTO 1.51 K/mm3 (0.84-5.20); LYMPHOCYTES PERCENT AUTO 28 % (21-46); MONOCYTES ABSOLUTE AUTO 0.60 K/mm3 (0.16-1.47); MONOCYTES PERCENT AUTO 11 % (4-13); Mean Corpuscular HGB Conc 32.7 g/dL (31.5-36.5); Mean Corpuscular Volume 91 fL (80-100); NEUTROPHILS ABSOLUTE AUTO 2.52 K/mm3 (1.96-9.15); NEUTROPHILS PERCENT AUTO 47 % (41-73); NRBC ABSOLUTE 0.00 K/mm3 (0.00-0.02); NRBC Auto 0.0 /100 WBC (0.0-0.2); Platelet Count 243 K/mm3 (150-400); RDW Coefficient Variation 13.3 % (11.7-14.2); RDW Standard Deviation 44.8 fL (35.1-46.3)
[2025-02-20 06:55] LABS: Alanine Aminotransfer (ALT/SGP 22.0 U/L (12-78); Albumin, Blood 4.0 g/dL (3.4-5.0); Albumin/Globulin Ratio 1.2 (0.8-1.8); Anion Gap 4.0 mmol/L (3-11); Aspartate Aminotrans (AST/SGOT 20.0 U/L (12-37); Bilirubin, Total 0.6 mg/dL (0.1-1.0); Blood Urea Nitrogen 22.0 mg/dL (8-24); CO2, Blood 30.0 mmol/L (21-32); Calcium, Blood 9.3 mg/dL (8.5-10.1); Chloride, Blood 105.0 mmol/L (98-108); Creatinine, Blood 0.56 mg/dL (0.40-1.00); Globulin, Blood 3.4 g/dL (2.2-4.0); Glucose, Blood 91.0 mg/dL (70-99); Potassium, Blood 3.3 mmol/L (3.5-5.5); Sodium, Blood 136.0 mmol/L (136-145); Total Protein, Blood 7.4 g/dL (6.4-8.2)
[2025-02-20] MEDS ORDERED: POTA10T PO (07:17)
[2025-02-20 07:27] VITALS: BP 134/94
== END 2025-02-20 07:30 | disposition home or self-care (01) ==
LOC: ER 05:41
PROVIDERS: Emergency Medicine
DX: R00.2 Palpitations (principal); R07.89 Other chest pain; E87.6 Hypokalemia; Z86.73 Personal history of transient ischemic attack (TIA), and cerebral infarction without residual deficits; Z79.899 Other long term (current) drug therapy; Z88.2 Allergy status to sulfonamides; Z91.040 Latex allergy status; Z88.5 Allergy status to narcotic agent; Z88.8 Allergy status to other drugs, medicaments and biological substances
CPT/HCPCS: 71045; 80053; 84484; 85025; 93005; 93010; 96360; 99285-25; A9270; J7030

== ENCOUNTER 2025-05-21 04:26 | Emergency (ER) | payer OTHER ==
[~2025-05-21] VITALS: Ht 167.6 cm; Wt 63.5 kg
[~2025-05-21 04:26] MED LIST changes: +POTA10T PO
[2025-05-21 04:45] LABS: BASOPHILS ABSOLUTE AUTO 0.06 K/mm3 (0.00-0.23); BASOPHILS PERCENT AUTO 2 % (0-2); EOSINOPHILS ABSOLUTE AUTO 0.47 K/mm3 (0.00-0.68); EOSINOPHILS PERCENT AUTO 12 % (0-6); Hematocrit 33.7 % (33.0-51.0); Hemoglobin 10.8 g/dL (11.5-16.0); IMMATURE GRAN ABSOLUTE AUTO 0.02 K/mm3 (0.00-0.10); IMMATURE GRAN PERCENT AUTO 1 % (0-1); LYMPHOCYTES ABSOLUTE AUTO 0.88 K/mm3 (0.84-5.20); LYMPHOCYTES PERCENT AUTO 22 % (21-46); MONOCYTES ABSOLUTE AUTO 0.31 K/mm3 (0.16-1.47); MONOCYTES PERCENT AUTO 8 % (4-13); Mean Corpuscular HGB Conc 32.0 g/dL (31.5-36.5); Mean Corpuscular Volume 94 fL (80-100); NEUTROPHILS ABSOLUTE AUTO 2.27 K/mm3 (1.96-9.15); NEUTROPHILS PERCENT AUTO 57 % (41-73); NRBC ABSOLUTE 0.00 K/mm3 (0.00-0.02); NRBC Auto 0.0 /100 WBC (0.0-0.2); Platelet Count 182 K/mm3 (150-400); RDW Coefficient Variation 12.3 % (11.7-14.2); RDW Standard Deviation 43.1 fL (35.1-46.3)
[2025-05-21 04:59] LABS: Source, Urine Clean Catch
[2025-05-21 05:06] LABS: Bilirubin, Urine Neg (Neg); Glucose Qualitative, Urine Neg (Neg); Ketones, Urine Neg (Neg); Leukocyte Esterase, Urine Neg (Neg); Protein, Urine 1+ (Neg); Specific Gravity, Urine 1.020 (1.003-1.022); Urobilinogen, Urine NORM (Normal)
[2025-05-21 05:08] LABS: Alanine Aminotransfer (ALT/SGP 18 U/L (12-78); Albumin, Blood 3.4 g/dL (3.4-5.0); Albumin/Globulin Ratio 1.0 (0.8-1.8); Anion Gap 7 mmol/L (3-11); Aspartate Aminotrans (AST/SGOT 21 U/L (12-37); Bilirubin, Total 0.4 mg/dL (0.1-1.0); Blood Urea Nitrogen 18 mg/dL (8-24); CO2, Blood 26 mmol/L (21-32); Calcium, Blood 8.0 mg/dL (8.5-10.1); Chloride, Blood 106 mmol/L (98-108); Creatinine, Blood 0.49 mg/dL (0.40-1.00); Ethanol (Alcohol), Blood, Med <3 mg/dL; Globulin, Blood 3.4 g/dL (2.2-4.0); Glucose, Blood 124 mg/dL (70-99); Potassium, Blood 3.4 mmol/L (3.5-5.5); Sodium, Blood 136 mmol/L (136-145); Total Protein, Blood 6.8 g/dL (6.4-8.2)
[2025-05-21 05:15] LABS: Color, Urine Yellow (P-Yellow)
[2025-05-21 05:17] LABS: pH Blood Venous 7.31 (7.34-7.37)
[2025-05-21 06:37] LABS: U Amphetamine Screen DETECTED; U Barbiturate Screen Not Detected; U Benzodiazapine Screen Not Detected; U Buprenorphine Screen Not Detected; U Cannabinoids Screen DETECTED; U Cocaine Screen Not Detected; U Methadone Screen Not Detected; U Methamphetamine Screen DETECTED; U Opiates Screen Not Detected; U Oxycodone Screen Not Detected; U Phencyclidine Screen Not Detected
[2025-05-21 09:15] VITALS: BP 124/78
[2025-05-22 13:32] LABS: KEPPRA (LEVETIRACETAM) 9.5 ug/mL (10.0-40.0)
== END 2025-05-21 09:23 | disposition home or self-care (01) ==
LOC: ER 04:26
PROVIDERS: Emergency Medicine
DX: G40.409 Other generalized epilepsy and epileptic syndromes, not intractable, without status epilepticus (principal); R55 Syncope and collapse; I10 Essential (primary) hypertension; M06.9 Rheumatoid arthritis, unspecified; Z86.73 Personal history of transient ischemic attack (TIA), and cerebral infarction without residual deficits; Z88.2 Allergy status to sulfonamides; Z91.018 Allergy to other foods; Z91.040 Latex allergy status; Z88.8 Allergy status to other drugs, medicaments and biological substances; Z88.5 Allergy status to narcotic agent; Z91.09 Other allergy status, other than to drugs and biological substances; Z79.899 Other long term (current) drug therapy
CPT/HCPCS: 51702; 70450; 70496; 70498; 80053; 80177; 80320; 82803; 83605; 84484; 85025; 85651; 99285-25; Q9967